=== PATIENT | female | born 1950 | race American Indian/Alaskan Native ===

== ENCOUNTER 2017-01-19 13:45 | Day surgery (SDC) | payer BC, OTHER ==
[2017-01-18 08:10] VITALS: BMI 27.9
[2017-01-19] MEDS ORDERED: Benzoin Compund Tincture 30 ML TP ONE (14:27)
[2017-01-19] MEDS ORDERED: Bupivacaine HCl 0.25% PF (30 ml) Inj ONE (14:27)
[2017-01-19] MEDS ORDERED: ceFAZolin IV 1 gm in Dextrose 2 GM/100 ML BAG IVPB ONE (14:27)
[2017-01-19] MEDS ORDERED: EPINEPHrine 1 mg/ml (1:1000) Inj ONE (14:27)
[2017-01-19] MEDS ORDERED: Sodium Bicarbonate 4.2% Inj (Infant) ONE (14:28)
[2017-01-19] MEDS ORDERED: Liquid Adhesive TOP ONE ×2 (14:28→17:46)
[2017-01-19] MEDS ORDERED: Propofol 10 mg/ml Inj (20 ML) ONE (15:16)
[2017-01-19] MEDS ORDERED: Midazolam 2 MG/2 ML VIAL ONE (15:17)
[2017-01-19] MEDS ORDERED: Lidocaine 1% 5ml Abboject IV ONE (15:18)
[2017-01-19] MEDS ORDERED: Phenylephrine 10 mg/ml Inj ONE (15:19)
[2017-01-19] MEDS ORDERED: Succinylcholine 200 mg/10 ml Inj IV ONE (15:21)
[2017-01-19 15:31] LABS: PARTIAL THROMBOPLASTIN TIME 31.8 Seconds (25.6-37.1)
[2017-01-19] MEDS ORDERED: Lactated Ringer's 1,000 ML IV ONE (15:53)
[2017-01-19] MEDS ORDERED: Bupivacaine HCl 0.25% PF (10 ml) Inj ONE (16:06)
[2017-01-19] MEDS ORDERED: Bupivacaine 0.5% Inj(30mL) ONE (16:07)
[2017-01-19] MEDS ORDERED: BENZOIN 60 ML TINCTURE TP ONE (17:48)
--- NOTE | 2017-01-19 18:07 | PCM.SURG1 ---
Surgeon's Initial Post Op Note - Surgeon's Notes Surgeon: alphonse ford md Store Stock Help: none Type of Anesthesia: MAC, Local Pre-Operative Diagnosis: Over active bladder. Urgency incontinence Operative Findings: old interstim lead removed and old intersim battery removed. new lead inserted left side and new interstim battery inserted at the old side on righ buttock Post-Operative Diagnosis: Urgency incontinence. Over active bladder Operation Performed: Stage I and II interstim procedure (complete intestim procedure). Removal of old interstim batery and lead Specimen/Specimens Removed: old battery and lead Estimated Blood Loss: EBL {In ML}: 10 Blood Products Given: N/A Drains Used: No Drains Post-Op Condition: Good Date of Surgery/Procedure: 01/19/17 Time of Surgery/Procedure: 18:09
[2017-01-19 21:12] VITALS: RESP 19; O2SAT 96
[2017-01-19 21:13] VITALS: BP 134/76; PULSE 88; TEMP 97.8
--- NOTE | 2017-01-19 22:31 | CARD ---
APPROVED REPORT EKG Measurement Heart [id number] MN [id number] <Conclusion> Sinus bradycardia Otherwise normal ECG
--- NOTE | 2017-01-22 10:58 | RAD ---
PROCEDURE: Intraoperative Fluoroscopy. HISTORY: INTERSTEM REPLACEMENT FINDINGS: Fluoroscopic assistance was provided for INTERSTEM REPLACEMENT.
--- NOTE | 2017-01-25 01:14 | PCM.OP ---
Operative Report - Operative Report Date of Surgery/Procedure: 01/19/17 Time of Surgery/Procedure: 19:00 Surgeon: Shannan Espinosa MD Count Team Clerk: none Anesthesia/Sedation: MAc and local anesthesia Pre-Operative Diagnosis: Over active bladder. urgency incontinence. 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 urgency incontinence. 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 urgency incontinence. 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 Operative Findings: see detailed description bellow Procedure/Operation Description: Interstim therapy full system implant / Stage I and II interstim procedure. REmoval of old failed intestim lead and battery. . Detailed Operative Report. Procedure: 1. Removal of falied old intestim device and tined quadripolar lead electrode and battery. 2. Complete InterStim system implantation with incision and implantation of tined quadripolar lead electrodes into Foramen S3. Fluoroscopic guidance for needle placement. Subcutaneous implantation of sacral nerve neurostimulator and electronic analysis and complex programming. Description of Procedure: Patient was properly identified and placed in prone position per OR protocol. MAC anesthesia was administered. Pillows were placed under lower abdomen to flatten sacrum and under shins to allow the toes to dangle freely. Tape was placed on each buttock and pulled laterally to separate cheeks adequately to visualize anal sphincter. . Patient was prepped and draped in usual sterile fashion using ChloroPrep solution. Prior testing and complex analysis of the presently implanted device and clear clinical evidance of failed interstim system, decision was made to remove the old battery and test the lead for possible replacement of the battery only if the lead was properly assessed and proven to be functional. An incision was made over the old battery interstim device, and the old capsure was entered. the battery was extracted and the lead disconnected from the battery. The lead was tested and no motor or sensory responce was noted or induced via the testing. decision was made to remove the old lead and insert a new functinal lead. A small incision was made near the insertion point and the lead was extracted intact and sent to pathology labeled appropriatly. The was accompished with the aid of the [facility] floroscopy imaging. The C-arm was moved into PA position to provide fluoroscopy visual and the midline of the vertebrae, SI notches and medial foramenal borders were marked. The C-arm was moved to lateral position to image the area from sacral promontory to the coccyx. Local injection of quarter percent Marcaine was administered. A 5 sized needle was introduced approximately 2 cm above SI notch and 2 cm lateral to vertebral midline, feeling for foramenal margins until the S3 foramen was identified and penetrated. The depth of the needle was confirmed and adjusted fluoroscopically. Proper needle position was confirmed by patient identification of location of sensation, direct observation of the lifting of the perineum or "bellowing"; and observation of plantar flexion of the great toe utilizing the test stimulator box. The needle stylet was removed and a directional guide wire was placed and confirmed fluoroscopically. The foramen needle was removed. An incision was made peripherally to the directional guide wire through the fascial layer. The dilator and introducer sheath was placed over the directional guide wire and directed into the foramen until the opaque marker of the dilator was seen on the anterior rim of the sacrum. The dilator obturator was unlocked and removed. The lead was then placed through the introducer sheath to the first white line. Position was checked fluoroscopically. The lead was then further introduced until 3 electrodes were visible below the sacrum. Each electrode was tested for location of patient sensation, visualization of yury and plantar flexion of the great toe. After satisfactory positioning was confirmed , under continuous fluoro, the introducer sheath was retracted, deploying lead tines into the perisacral tissue. Further incision was made into subcutaneous tissue posterior to the iliac crest and blunt dissection was continued until the gluteal fascia was identified and hemostasis was achieved allowing for a sufficient pocket for the neurostimulator. A tunneling tool and tube was placed from the lead subcutaneously to the incised pocket site. The tunneling tool was removed and the lead was fed through the tube and pulled out at the pocket site. The lead was cleansed of bodily fluids and a boot was placed over the lead. The lead was inserted into the Interstim II pulse generator and the metal bands were aligned with the white lead tip clearly visible in the distal portion of the pulse generator header. The single setscrew was tightened with the hex wrench. The pulse generator was placed into the subcutaneous pocket with the etched identification side placed upwards and the extension wrapped counterclockwise around the pulse generator. The programming head was placed over the implanted neurostimulator. The impedance was verified to insure adequate lead placement and if parameters were within normal limits. If impedance is greater than normal limits, a second interrogation is required. If the second interrogation is required, further trouble shooting may be required. Impedances were checked confirmed to be within normal limits, greater than 50 and less than 4,000. After implantation of the neurostimulator was completed, then complex programming of the neurostimulator was performed based on impedance values. Final electrode selections were set. Estimated time for analysis and complex programming was 48 minutes. The wounds were irrigated with antibiotic solution in water and closed with 2-0 Vicryl subcutaneously and 4-0 Monocryl subcuticular suture. Counts were correct. Steri strips and gauze 4x4s were placed over incision and under cable connector. Tegaderm was placed over entire site to cover incision. EBL was ____5__ cc. The patient was transferred to PACU in satisfactory condition. Using the clinician metal numerical control programmer, the patient was programmed to the lead of optimum sensation, and given instructions on utilizing the patient metal numerical control programmer prior to discharge. CPT Codes. 92310 - Incision for implantation of neurostimulator electrodes, sacral nerve (transforaminal placement). 62425 - Insertion or replacement of peripheral neurostimulator pulse generator or supervisor files, direct or inductive coupling. 33264 - Fluoroscopic guidance for needle placement. CPT Codes - continued. 87404 - Complex spinal cord, or peripheral (except cranial nerve ) neurostimulator pulse generator/transmitter, with intraoperative or subsequent programming, first hour. C1778. C1767. C1894. C1787 Estimated Blood Loss: 5 Blood Replaced: none Sponge/Instrument Count: correct times 2 Drains: none Complications: none Specimen: old intestim device Discharge & Condition: pt discharged home in s table condition same day
== END 2017-01-19 21:15 | disposition home or self-care (01) ==
LOC: H.OPSURG 13:45 → H.MEDSURG1 19:14 → H.OPSURG 21:15
PROVIDERS: ATTEND Obstetrics & Gynecology
DX: N32.81 Overactive bladder (principal); R10.2 Pelvic and perineal pain; I48.91 Unspecified atrial fibrillation; J45.909 Unspecified asthma, uncomplicated; I25.10 Atherosclerotic heart disease of native coronary artery without angina pectoris; E11.9 Type 2 diabetes mellitus without complications; E78.5 Hyperlipidemia, unspecified; I10 Essential (primary) hypertension; N39.41 Urge incontinence
CPT/HCPCS: 36415; 64561; 64590; 85610; 85730; 93005; C1767; C1778; C1787; J0690; J1885; J2250; J2370; J2704; J2765; J3010; J7030; J7120